=== PATIENT | female | born 1950 | race Caucasian/White ===

== ENCOUNTER → 2020-06-18 | Outpatient (CLI) | payer MEDICARE ==
[~2020-06-18] MED LIST: AMIT10TA PO; CHOL20009 PO; CYAN100072 PO; DICL75TA3 PO; GABA300C PO; MULT-658 PO; VIT1CAPS51 PO; biotin PO
[2020-06-18 10:49] LABS: MICROSCOPIC NOT IND
[2020-06-18 10:56] LABS: BASOPHILS % (AUTO) 1 % (0-1); EOSINOPHILS % (AUTO) 1 % (1-7); LYMPHOCYTES % (AUTO) 27 % (22-44); MEAN CORPUSCULAR HEMOGLOBIN 35.5 pg (27.0-34.8); MEAN PLATELET VOLUME 7.3 fL (7.4-10.4); MONOCYTES % (AUTO) 6 % (2-9); NEUTROPHILS % (AUTO) 65 % (42-75); PLATELET COUNT 322 x10^3/uL (130-400); RED BLOOD COUNT 4.21 x10^6/uL (3.82-5.3); RED CELL DISTRIBUTION WIDTH 13.1 % (9.6-15.2)
[2020-06-18 10:59] LABS: ANION GAP 5 mmol/L (5-15); CALCIUM 8.6 mg/dL (8.5-10.1); CHLORIDE 108 mmol/L (98-107); CREATININE 0.91 mg/dL (0.55-1.02)
[2020-06-18 11:00] LABS: INTERNATIONAL NORMALIZED RATIO 0.92 (0.93-1.1); PROTHROMBIN TIME 9.5 Seconds (9.6-11.5)
[2020-06-18 11:13] LABS: MD NO
== END | disposition home or self-care (01) ==
LOC: STAR 09:31
PROVIDERS: ATTEND Neurological Surgery
DX: Z01.818 Encounter for other preprocedural examination (principal); Z01.812 Encounter for preprocedural laboratory examination; Z01.811 Encounter for preprocedural respiratory examination; Z01.810 Encounter for preprocedural cardiovascular examination; M51.17 Intervertebral disc disorders with radiculopathy, lumbosacral region; R79.1 Abnormal coagulation profile; R82.90 Unspecified abnormal findings in urine; R94.31 Abnormal electrocardiogram [ECG] [EKG]; M48.061 Spinal stenosis, lumbar region without neurogenic claudication; M95.4 Acquired deformity of chest and rib
CPT/HCPCS: 36415; 71046; 72110; 80048; 81003; 85025; 85610; 85730; 93005

== ENCOUNTER → 2020-06-24 | Outpatient (CLI) | payer MEDICARE | END | disposition home or self-care (01) | LOC: STAR 08:58 | PROVIDERS: ATTEND Anesthesiology | DX: Z01.812 Encounter for preprocedural laboratory examination (principal); Z20.828 Contact with and (suspected) exposure to other viral communicable diseases | CPT/HCPCS: 36415; 87635 ==

== ENCOUNTER 2020-06-28 11:07 | Inpatient (IN) | payer MEDICARE ==
[~2020-06-28] VITALS: Ht 162.6 cm; Wt 60.0 kg
[~2020-06-28 11:07] MED LIST changes: +BACITRACIN 50,000 UNIT ONE; +BUPIVACAINE 0.25% ONE; +BUPIVACAINE/PF 0.5% ONE; +EPINEPHRINE 1 MG/ML, 1ML ONE; +VANCOMYCIN 1,000 MG ONE
[2020-06-28] MEDS ORDERED: CHLORHEXIDINE 15 ML UDC MM STA (11:18)
[2020-06-28] MEDS ORDERED: CHLORHEXIDINE 15 ML UDC ONE (11:22)
[2020-06-28] MEDS ORDERED: LACTATED RINGERS 1,000 ML IV SCH (11:30)
[2020-06-28] MEDS ORDERED: FENTANYL PF 250 MCG/5ML ONE (12:45)
[2020-06-28] MEDS ORDERED: MIDAZOLAM 1 MG/ML, 2ML ONE (12:45)
[2020-06-28] MEDS ORDERED: ONDANSETRON 2MG/ML, 2ML ONE (12:50)
[2020-06-28] MEDS ORDERED: CEFAZOLIN 1,000 MG ONE (12:50)
[2020-06-28] MEDS ORDERED: ROCURONIUM 10MG/ML,5ML ONE (12:50)
[2020-06-28] MEDS ORDERED: NEOSTIGMINE 1 MG/ML, 10ML ONE (12:50)
[2020-06-28] MEDS ORDERED: GLYCOPYRROLATE 0.2MG/1ML, 5ML ONE (12:50)
[2020-06-28] MEDS ORDERED: DEXAMETHASONE 4 MG/ML, 1ML ONE (12:50)
[2020-06-28] MEDS ORDERED: PROPOFOL 10 MG/ML, 20ML ONE (12:50)
[2020-06-28] MEDS ORDERED: morphine SULFATE 10 MG/ML, 1ML IVPush PRN (14:30)
[2020-06-28] MEDS ORDERED: HALOPERIDOL 5 MG/ML IV PRN (14:30)
[2020-06-28] MEDS ORDERED: PROMETHAZINE 25 MG/ML, 1ML IVPush PRN (14:30)
[2020-06-28] MEDS ORDERED: hydrALAzine 20 MG/ML, 1ML IV PRN (14:30)
[2020-06-28] MEDS ORDERED: HYDROmorphone 1 MG/ML, 1ML INJ IVPush PRN (14:30)
[2020-06-28] MEDS ORDERED: OXYcodone 5 MG/5 ML ORAL.SOL UDC PO PRN (14:30)
[2020-06-28] MEDS ORDERED: MEPERIDINE/PF 25MG/0.5ML IVPush PRN (14:30)
[2020-06-28] MEDS ORDERED: LABETALOL 5MG/ML, 20ML IV PRN ×2 (14:30→18:00)
[2020-06-28] MEDS ORDERED: ACETAMINOPHEN 325 MG TABLET PO PRN (14:30)
[2020-06-28] MEDS ORDERED: VANCOMYCIN 1,000 MG IM ONE (14:49)
[2020-06-28] MEDS ORDERED: FENTANYL PF 100 MCG/2ML ONE ×2 (14:57→16:27)
[2020-06-28] MEDS: FENTANYL PF 100 MCG/2ML IV PRN ×2 (16:20→16:25)
[2020-06-28] MEDS ORDERED: OXYcodone 5 MG/5 ML ORAL.SOL UDC ONE (16:27)
[2020-06-28] MEDS ORDERED: ACETAMINOPHEN 650 MG/20.3 ML UDC ONE (16:28)
[2020-06-28] MEDS ORDERED: METHOCARBAMOL 1,000 MG in DEXTROSE 5% 100 ML IV ONE (16:30)
[2020-06-28] MEDS ORDERED: BISACODYL 10 MG SUPP PR PRN (18:00)
[2020-06-28] MEDS ORDERED: OXYcodone IR 5MG TABLET PO PRN (18:00)
[2020-06-28] MEDS ORDERED: PROMETHAZINE 25 MG/ML, 1ML IM PRN (18:00)
[2020-06-28] MEDS ORDERED: MAGNESIUM HYDROXIDE 8%, 30ML UDC PO PRN (18:00)
[2020-06-28] MEDS ORDERED: ONDANSETRON 2MG/ML, 2ML IV PRN (18:00)
[2020-06-28] MEDS ORDERED: DIPHENHYDRAMINE 25 MG CAPSULE PO PRN (18:00)
[2020-06-28] MEDS: D5%-0.9% NACL+KCL 20MEQ 1,000 ML IV SCH (18:40)
[2020-06-28] MEDS: GABAPENTIN 300 MG CAPSULE PO SCH (19:56)
[2020-06-28] MEDS: HYDROcodone/APAP 5/325 TABLET PO PRN (20:01)
[2020-06-28 20:23] VITALS: BP 115/55
[2020-06-28] MEDS ORDERED: AMITRIPTYLINE 10 MG TABLET PO SCH (21:00)
[2020-06-28] MEDS ORDERED: ZOLPIDEM 5MG TABLET PO PRN (21:00)
[2020-06-28] MEDS: CEFAZOLIN PMX 1GM/50ML 50 ML IV SCH (22:02)
[2020-06-29] MEDS: METHOCARBAMOL 750 MG in DEXTROSE 5% 100 ML IV SCH ×2 (00:36→09:31)
[2020-06-29 01:38] VITALS: BP 96/43
[2020-06-29 05:33] VITALS: BP 95/45
[2020-06-29] MEDS: CEFAZOLIN PMX 1GM/50ML 50 ML IV SCH (06:04)
[2020-06-29] MEDS: HYDROcodone/APAP 5/325 TABLET PO PRN ×2 (06:05→13:36)
[2020-06-29 06:50] VITALS: BP 90/48
[2020-06-29] MEDS: D5%-0.9% NACL+KCL 20MEQ 1,000 ML IV SCH (08:30)
[2020-06-29] MEDS: GABAPENTIN 300 MG CAPSULE PO SCH (08:42)
[2020-06-29] MEDS ORDERED: SENNA/DOCUSATE TABLET PO SCH (09:00)
[2020-06-29 13:02] VITALS: BP 90/48
[2020-06-29] MEDS ORDERED: HYDR-3246 PO (14:16)
[2020-06-29] MEDS ORDERED: METH750T87 PO (14:17)
[2020-06-29] MEDS ORDERED: CEPH-368 PO (14:17)
[2020-07-01] MEDS ORDERED: METHOCARBAMOL 750 MG TABLET PO SCH (00:30)
== END 2020-06-29 14:58 | disposition home or self-care (01) | DRG 520 ==
LOC: OUT 11:07 → 4NE 17:33 → OUT 19:04 → 4NE 19:05
PROVIDERS: ADMIT Neurological Surgery; ATTEND Neurological Surgery
PROC: 01NB0ZZ Release Lumbar Nerve, Open Approach (ICD-10-PCS; 2020-06-28)
PROC: 0SB20ZZ Excision of Lumbar Vertebral Disc, Open Approach (ICD-10-PCS; 2020-06-28)
PROC: 4A11X4G Monitoring of Peripheral Nervous Electrical Activity, Intraoperative, External Approach (ICD-10-PCS; 2020-06-28)
PROC: 00NY0ZZ Release Lumbar Spinal Cord, Open Approach (ICD-10-PCS; principal; 2020-06-28 14:30)
DX: M51.16 Intervertebral disc disorders with radiculopathy, lumbar region (principal); M48.061 Spinal stenosis, lumbar region without neurogenic claudication
CPT/HCPCS: 72100; 95938; 95941; G0378; J0171; J0690; J1100; J2250; J2405; J2704; J2710; J3010; J3370; J2800; J3480

== ENCOUNTER 2021-05-16 11:23 | Outpatient (CLI) | payer MEDICARE ==
[~2021-05-16 11:23] MED LIST changes: +ACET-1600 PO; +ACET325T14 PO; -BACITRACIN 50,000 UNIT ONE; -BUPIVACAINE 0.25% ONE; -BUPIVACAINE/PF 0.5% ONE; +CEPH-368 PO; -EPINEPHRINE 1 MG/ML, 1ML ONE; +GABA600T7 PO; +HYDR-3248 PO; +METH-640 PO; +METH750T87 PO; -VANCOMYCIN 1,000 MG ONE
[2021-05-16] MEDS ORDERED: GABA600T7 PO (11:53)
[2021-05-16 12:24] LABS: MICROSCOPIC INDICATED
[2021-05-16 12:25] LABS: BASOPHILS % (AUTO) 2 % (0-1); EOSINOPHILS % (AUTO) 3 % (1-7); LYMPHOCYTES % (AUTO) 34 % (22-44); MEAN CORPUSCULAR HEMOGLOBIN 35.8 pg (27.0-34.8); MEAN CORPUSCULAR HGB CONC 34.4 g/dL (32.4-35.8); MEAN PLATELET VOLUME 7.3 fL (7.4-10.4); MONOCYTES % (AUTO) 9 % (2-9); NEUTROPHILS % (AUTO) 53 % (42-75); PLATELET COUNT 316 x10^3/uL (130-400); RED BLOOD COUNT 4.29 x10^6/uL (3.82-5.3); RED CELL DISTRIBUTION WIDTH 12.5 % (9.6-15.2)
[2021-05-16 12:32] LABS: ALANINE AMINOTRANSFERASE 24 U/L (12-78); ALBUMIN 3.4 g/dL (3.4-5.0); ANION GAP 5 mmol/L (5-15); CHLORIDE 106 mmol/L (98-107); CREATININE 0.88 mg/dL (0.55-1.02)
[2021-05-16 12:34] LABS: ALKALINE PHOSPHATASE 91 U/L (45-117); BILIRUBIN,TOTAL 0.3 mg/dL (0.2-1.0); TOTAL PROTEIN 7.1 g/dL (6.4-8.2)
[2021-05-16 12:38] LABS: INTERNATIONAL NORMALIZED RATIO 0.93 (0.93-1.1); PROTHROMBIN TIME 9.8 Seconds (9.6-11.5)
== END 2021-05-16 23:59 | disposition home or self-care (01) ==
LOC: STAR 11:23 → MERGE 11:23 → STAR 23:59
PROVIDERS: ATTEND Neurological Surgery
DX: Z01.810 Encounter for preprocedural cardiovascular examination (principal); Z01.811 Encounter for preprocedural respiratory examination; Z01.812 Encounter for preprocedural laboratory examination; M43.06 Spondylolysis, lumbar region; M48.061 Spinal stenosis, lumbar region without neurogenic claudication; R79.1 Abnormal coagulation profile; R82.90 Unspecified abnormal findings in urine; R94.31 Abnormal electrocardiogram [ECG] [EKG]; J43.9 Emphysema, unspecified; Z20.822 Contact with and (suspected) exposure to COVID-19
CPT/HCPCS: 36415; 71046; 80053; 81001; 85025; 85610; 85730; 87077; 87086; 93005; U0003; U0005; 87186

== ENCOUNTER 2021-05-22 05:26 | Inpatient (IN) | payer MEDICARE ==
[2021-05-21 10:34] LABS: MICROSCOPIC NOT IND
[~2021-05-22] VITALS: Ht 162.6 cm; Wt 57.4 kg
[2021-05-22 06:07] VITALS: BP 125/69
[2021-05-22] MEDS ORDERED: AMIT25TA PO (06:11)
[2021-05-22] MEDS ORDERED: CHLORHEXIDINE 15 ML UDC ONE (06:13)
[2021-05-22] MEDS ORDERED: CEFAZOLIN 1,000 MG ONE (06:18)
[2021-05-22] MEDS ORDERED: HEPARIN 1,000 UNITS/ML, 30ML ONE (06:18)
[2021-05-22] MEDS ORDERED: LACTATED RINGERS 1,000 ML IV SCH (06:30)
[2021-05-22] MEDS ORDERED: CHLORHEXIDINE 15 ML UDC PO ONE (06:30)
[2021-05-22] MEDS ORDERED: MIDAZOLAM 1 MG/ML, 2ML ONE (06:39)
[2021-05-22] MEDS ORDERED: FENTANYL PF 250 MCG/5ML ONE (06:40)
[2021-05-22] MEDS ORDERED: CEFAZOLIN 1,000 MG IM ONE (08:05)
[2021-05-22] MEDS ORDERED: HEPARIN 1,000 UNITS/ML, 30ML IVPB ONE (08:06)
[2021-05-22] MEDS ORDERED: BISACODYL 10 MG SUPP PR PRN (09:00)
[2021-05-22] MEDS ORDERED: PROMETHAZINE 25 MG/ML, 1ML IM PRN (09:00)
[2021-05-22] MEDS ORDERED: PROMETHAZINE 25 MG/ML, 1ML IV PRN (09:00)
[2021-05-22] MEDS ORDERED: LABETALOL 5MG/ML, 20ML IV PRN (09:00)
[2021-05-22] MEDS ORDERED: MEPERIDINE/PF 25MG/0.5ML IVPush PRN (09:00)
[2021-05-22] MEDS ORDERED: KETOROLAC 30 MG/1 ML IV PRN (09:00)
[2021-05-22] MEDS ORDERED: ALBUTEROL SULFATE 2.5 MG/3 ML NPPB PRN (09:00)
[2021-05-22] MEDS ORDERED: METOCLOPRAMIDE 5 MG/ML, 2ML IV PRN (09:00)
[2021-05-22] MEDS ORDERED: OXYcodone/APAP 5/325MG TABLET PO PRN (09:00)
[2021-05-22] MEDS ORDERED: DIAZEPAM 5 MG/ML, 2ML IV PRN ×2 (09:00)
[2021-05-22] MEDS ORDERED: hydrALAzine 20 MG/ML, 1ML IV PRN (09:00)
[2021-05-22] MEDS: SODIUM CHLORIDE FLUSH 10ML SYR IVF SCH ×2 (09:00→20:29)
[2021-05-22] MEDS ORDERED: MAGNESIUM HYDROXIDE 8%, 30ML UDC PO PRN (09:00)
[2021-05-22] MEDS ORDERED: METHOCARBAMOL 1,000 MG in DEXTROSE 5% 100 ML IV ONE (09:00)
[2021-05-22] MEDS ORDERED: LABETALOL 5MG/ML, 20ML IVPush PRN (09:00)
[2021-05-22] MEDS ORDERED: DIPHENHYDRAMINE 50 MG/ML, 1ML IM PRN (09:00)
[2021-05-22] MEDS ORDERED: DIPHENHYDRAMINE 50 MG CAPSULE PO PRN (09:00)
[2021-05-22] MEDS ORDERED: OXYcodone 5 MG/5 ML ORAL.SOL UDC PO PRN (09:00)
[2021-05-22] MEDS ORDERED: ONDANSETRON 2MG/ML, 2ML IVPush PRN ×2 (09:00)
[2021-05-22] MEDS ORDERED: PHARMACY MAY ADJ FOR RENAL FX MC PRN (09:00)
[2021-05-22] MEDS ORDERED: HYDROmorphone 1 MG/ML, 1ML INJ IVPush PRN (09:00)
[2021-05-22] MEDS ORDERED: DIPHENHYDRAMINE 50 MG/ML, 1ML IVPush PRN (09:00)
[2021-05-22] MEDS ORDERED: HYDROmorphone 1 MG/ML, 1ML INJ IV PRN (09:00)
[2021-05-22] MEDS ORDERED: FENTANYL PF 100 MCG/2ML ONE (09:30)
[2021-05-22] MEDS: FENTANYL PF 100 MCG/2ML IV PRN ×3 (09:32→09:56)
[2021-05-22] MEDS: GABAPENTIN 300 MG CAPSULE PO SCH ×2 (11:47→20:29)
[2021-05-22] MEDS: HYDROcodone/APAP 5/325 TABLET PO PRN ×2 (11:48→16:04)
[2021-05-22 14:05] VITALS: BP 129/67
[2021-05-22] MEDS: D5%-0.9% NACL+KCL 20MEQ 1,000 ML IV SCH (16:04)
[2021-05-22] MEDS: CEFAZOLIN PMX 1GM/50ML 50 ML IVPB SCH (16:08)
[2021-05-22] MEDS: AMITRIPTYLINE 25 MG TABLET PO SCH (20:28)
[2021-05-22 20:39] VITALS: BP 111/52
[2021-05-23] MEDS: HYDROcodone/APAP 5/325 TABLET PO PRN ×3 (00:09→20:58)
[2021-05-23] MEDS: CEFAZOLIN PMX 1GM/50ML 50 ML IVPB SCH ×2 (00:09→17:45)
[2021-05-23 00:22] VITALS: BP 99/59
[2021-05-23 04:35] VITALS: BP 99/53
[2021-05-23] MEDS: D5%-0.9% NACL+KCL 20MEQ 1,000 ML IV SCH ×2 (05:24→14:00)
[2021-05-23] MEDS ORDERED: CEFAZOLIN 1,000 MG ONE (06:50)
[2021-05-23] MEDS ORDERED: EPINEPHRINE 1 MG/ML, 1ML ONE (06:50)
[2021-05-23] MEDS ORDERED: BUPIVACAINE/PF 0.5% ONE (06:50)
[2021-05-23 06:52] VITALS: BP 115/72
[2021-05-23] MEDS ORDERED: FENTANYL PF 250 MCG/5ML ONE (07:59)
[2021-05-23] MEDS: SODIUM CHLORIDE FLUSH 10ML SYR IVF SCH ×3 (08:14→20:59)
[2021-05-23] MEDS: GABAPENTIN 300 MG CAPSULE PO SCH ×2 (08:15→20:59)
[2021-05-23] MEDS ORDERED: CHLORHEXIDINE 15 ML UDC ONE ×2 (08:16→08:18)
[2021-05-23] MEDS ORDERED: CHLORHEXIDINE 15 ML UDC PO ONE (08:30)
[2021-05-23] MEDS ORDERED: DIPHENHYDRAMINE 50 MG/ML, 1ML IVPush PRN ×3 (09:00→11:30)
[2021-05-23] MEDS ORDERED: DIPHENHYDRAMINE 50 MG CAPSULE PO PRN (09:00)
[2021-05-23] MEDS ORDERED: PROPOFOL 100 ML ONE (09:05)
[2021-05-23] MEDS ORDERED: CEFAZOLIN 1,000 MG IM ONE (10:19)
[2021-05-23] MEDS ORDERED: BUPIVACAINE/PF-EPI 0.5% 1:200K INFIL ONE (10:19)
[2021-05-23] MEDS ORDERED: HYDROmorphone 1 MG/ML, 1ML INJ IVPush PRN (10:30)
[2021-05-23] MEDS ORDERED: HYDROcodone/APAP 7.5-325MG/15ML UDC PO PRN (10:30)
[2021-05-23] MEDS ORDERED: ONDANSETRON 2MG/ML, 2ML IVPush PRN ×2 (10:30→11:30)
[2021-05-23] MEDS ORDERED: MEPERIDINE/PF 25MG/0.5ML IVPush PRN (10:30)
[2021-05-23] MEDS ORDERED: LORazepam 2 MG/ML, 1ML IVPush PRN (10:30)
[2021-05-23] MEDS ORDERED: PROMETHAZINE 25 MG/ML, 1ML IVPush PRN (10:30)
[2021-05-23] MEDS ORDERED: METHOCARBAMOL 1,000 MG in DEXTROSE 5% 100 ML IV PRN (10:30)
[2021-05-23] MEDS ORDERED: BISACODYL 10 MG SUPP PR PRN (11:30)
[2021-05-23] MEDS ORDERED: SENNA/DOCUSATE TABLET PO PRN (11:30)
[2021-05-23] MEDS ORDERED: PHARMACY MAY ADJ FOR RENAL FX MC PRN (11:30)
[2021-05-23] MEDS ORDERED: HYDROmorphone/PF 4 MG/ML, 1ML IM PRN (11:30)
[2021-05-23] MEDS ORDERED: OXYcodone/APAP 5/325MG TABLET PO PRN (11:30)
[2021-05-23] MEDS ORDERED: HYDROcodone/APAP 10/325 MG TABLET PO PRN (11:30)
[2021-05-23] MEDS ORDERED: MAGNESIUM HYDROXIDE 8%, 30ML UDC PO PRN (11:30)
[2021-05-23] MEDS ORDERED: FENTANYL PF 100 MCG/2ML ONE (11:38)
[2021-05-23] MEDS: FENTANYL PF 100 MCG/2ML IV PRN ×2 (11:39→12:00)
[2021-05-23] MEDS ORDERED: HYDROcodone/APAP 7.5-325MG/15ML UDC ONE (11:55)
[2021-05-23] MEDS ORDERED: METHOCARBAMOL 1,000 MG in DEXTROSE 5% 100 ML IV ONE (12:00)
[2021-05-23] MEDS: NS + 20MEQ KCL 1,000 ML IV SCH (12:53)
[2021-05-23 14:31] VITALS: BP 122/76
[2021-05-23] MEDS ORDERED: HYDROmorphone 2 MG/ML, 1ML ONE (14:40)
[2021-05-23] MEDS: AMITRIPTYLINE 25 MG TABLET PO SCH (20:58)
[2021-05-23 21:00] VITALS: BP 120/72
[2021-05-24 00:15] VITALS: BP 112/65
[2021-05-24] MEDS: CEFAZOLIN PMX 1GM/50ML 50 ML IVPB SCH (01:41)
[2021-05-24] MEDS: HYDROcodone/APAP 5/325 TABLET PO PRN ×5 (01:41→21:40)
[2021-05-24] MEDS: NS + 20MEQ KCL 1,000 ML IV SCH ×2 (02:20→11:51)
[2021-05-24] MEDS: ENOXAPARIN 40 MG/0.4 ML SQ SCH (06:10)
[2021-05-24 06:15] VITALS: BP 120/58
[2021-05-24 06:29] LABS: BASOPHILS % (AUTO) 1 % (0-1); EOSINOPHILS % (AUTO) 1 % (1-7); LYMPHOCYTES % (AUTO) 23 % (22-44); MEAN CORPUSCULAR HEMOGLOBIN 35.7 pg (27.0-34.8); MEAN CORPUSCULAR HGB CONC 34.3 g/dL (32.4-35.8); MEAN PLATELET VOLUME 7.5 fL (7.4-10.4); MONOCYTES % (AUTO) 8 % (2-9); NEUTROPHILS % (AUTO) 68 % (42-75); PLATELET COUNT 205 x10^3/uL (130-400); RED BLOOD COUNT 3.56 x10^6/uL (3.82-5.3); RED CELL DISTRIBUTION WIDTH 12.4 % (9.6-15.2)
[2021-05-24 06:30] LABS: ANION GAP 4 mmol/L (5-15); CALCIUM 8.2 mg/dL (8.5-10.1); CHLORIDE 108 mmol/L (98-107); CREATININE 0.71 mg/dL (0.55-1.02)
[2021-05-24] MEDS: SODIUM CHLORIDE FLUSH 10ML SYR IVF SCH ×3 (07:14→21:42)
[2021-05-24] MEDS: D5%-0.9% NACL+KCL 20MEQ 1,000 ML IV SCH ×2 (07:15)
[2021-05-24] MEDS: POLYETHYLENE GLYCOL 17 GM PACKET PO SCH (08:09)
[2021-05-24] MEDS: GABAPENTIN 300 MG CAPSULE PO SCH ×2 (08:09→21:38)
[2021-05-24 15:00] VITALS: BP 120/58
[2021-05-24] MEDS: SENNA/DOCUSATE TABLET PO PRN (17:06)
[2021-05-24 20:35] VITALS: BP 118/50
[2021-05-24] MEDS: AMITRIPTYLINE 25 MG TABLET PO SCH (21:38)
[2021-05-25] MEDS: NS + 20MEQ KCL 1,000 ML IV SCH ×3 (01:20→23:26)
[2021-05-25 02:59] VITALS: BP 143/70
[2021-05-25] MEDS: METHOCARBAMOL 750 MG TABLET PO PRN ×3 (03:09→20:51)
[2021-05-25] MEDS: ENOXAPARIN 40 MG/0.4 ML SQ SCH (05:46)
[2021-05-25 05:47] LABS: BASOPHILS % (AUTO) 1 % (0-1); EOSINOPHILS % (AUTO) 2 % (1-7); LYMPHOCYTES % (AUTO) 15 % (22-44); MEAN CORPUSCULAR HEMOGLOBIN 36.3 pg (27.0-34.8); MEAN CORPUSCULAR HGB CONC 35.2 g/dL (32.4-35.8); MEAN PLATELET VOLUME 7.5 fL (7.4-10.4); MONOCYTES % (AUTO) 8 % (2-9); NEUTROPHILS % (AUTO) 75 % (42-75); PLATELET COUNT 200 x10^3/uL (130-400); RED BLOOD COUNT 3.72 x10^6/uL (3.82-5.3); RED CELL DISTRIBUTION WIDTH 11.9 % (9.6-15.2)
[2021-05-25 05:56] LABS: ANION GAP 4 mmol/L (5-15); CALCIUM 8.5 mg/dL (8.5-10.1); CHLORIDE 102 mmol/L (98-107)
[2021-05-25 05:59] LABS: CREATININE 0.65 mg/dL (0.55-1.02)
[2021-05-25 08:48] VITALS: BP 129/68
[2021-05-25] MEDS: SODIUM CHLORIDE FLUSH 10ML SYR IVF SCH ×2 (09:00→20:51)
[2021-05-25] MEDS: POLYETHYLENE GLYCOL 17 GM PACKET PO SCH (10:21)
[2021-05-25] MEDS: GABAPENTIN 300 MG CAPSULE PO SCH ×2 (10:29→20:51)
[2021-05-25] MEDS ORDERED: MAGNESIUM CITRATE 300ML ORAL SOL PO PRN (12:00)
[2021-05-25 14:00] VITALS: BP 133/65
[2021-05-25] MEDS: SENNA/DOCUSATE TABLET PO PRN (16:51)
[2021-05-25 20:38] VITALS: BP 129/62
[2021-05-25] MEDS: AMITRIPTYLINE 25 MG TABLET PO SCH (20:51)
[2021-05-26 01:15] VITALS: BP 123/62
[2021-05-26 06:32] LABS: BASOPHILS % (AUTO) 1 % (0-1); EOSINOPHILS % (AUTO) 2 % (1-7); LYMPHOCYTES % (AUTO) 17 % (22-44); MEAN CORPUSCULAR HEMOGLOBIN 36.3 pg (27.0-34.8); MEAN CORPUSCULAR HGB CONC 35.5 g/dL (32.4-35.8); MEAN PLATELET VOLUME 7.5 fL (7.4-10.4); MONOCYTES % (AUTO) 9 % (2-9); NEUTROPHILS % (AUTO) 71 % (42-75); PLATELET COUNT 210 x10^3/uL (130-400); RED BLOOD COUNT 3.77 x10^6/uL (3.82-5.3); RED CELL DISTRIBUTION WIDTH 11.8 % (9.6-15.2)
[2021-05-26] MEDS ORDERED: VANCOMYCIN 1,000 MG ONE (06:37)
[2021-05-26] MEDS ORDERED: CEFAZOLIN 1,000 MG ONE ×2 (06:37→07:58)
[2021-05-26] MEDS ORDERED: BUPIVACAINE/PF 0.5% ONE (06:37)
[2021-05-26 06:44] LABS: ANION GAP 6 mmol/L (5-15); CALCIUM 8.7 mg/dL (8.5-10.1); CHLORIDE 100 mmol/L (98-107)
[2021-05-26 06:46] LABS: CREATININE 0.58 mg/dL (0.55-1.02)
[2021-05-26 07:12] VITALS: BP 129/65
[2021-05-26] MEDS ORDERED: FENTANYL PF 250 MCG/5ML ONE (07:57)
[2021-05-26] MEDS ORDERED: DEXAMETHASONE 4 MG/ML, 1ML ONE (07:58)
[2021-05-26] MEDS ORDERED: GLYCOPYRROLATE 0.2MG/1ML, 5ML ONE (07:58)
[2021-05-26] MEDS ORDERED: ONDANSETRON 2MG/ML, 2ML ONE (07:58)
[2021-05-26] MEDS ORDERED: ROCURONIUM 10MG/ML,5ML ONE (07:58)
[2021-05-26] MEDS ORDERED: PROPOFOL 100 ML ONE (07:58)
[2021-05-26] MEDS ORDERED: PROPOFOL 10 MG/ML, 20ML ONE (07:58)
[2021-05-26] MEDS ORDERED: NEOSTIGMINE 1 MG/ML, 10ML ONE (07:58)
[2021-05-26] MEDS ORDERED: CHLORHEXIDINE 15 ML UDC PO ONE (08:30)
[2021-05-26] MEDS ORDERED: CHLORHEXIDINE 15 ML UDC ONE (08:32)
[2021-05-26] MEDS ORDERED: hydrALAzine 20 MG/ML, 1ML IV PRN (09:00)
[2021-05-26] MEDS ORDERED: LABETALOL 5MG/ML, 20ML IV PRN (09:00)
[2021-05-26] MEDS: SODIUM CHLORIDE FLUSH 10ML SYR IVF SCH ×3 (09:00→20:26)
[2021-05-26] MEDS ORDERED: HALOPERIDOL 5 MG/ML IV PRN (09:00)
[2021-05-26] MEDS ORDERED: HYDROmorphone 1 MG/ML, 1ML INJ IVPush PRN (09:00)
[2021-05-26] MEDS: GABAPENTIN 300 MG CAPSULE PO SCH ×2 (09:00→20:26)
[2021-05-26] MEDS ORDERED: MEPERIDINE/PF 25MG/0.5ML IVPush PRN (09:00)
[2021-05-26] MEDS ORDERED: morphine SULFATE 10 MG/ML, 1ML IVPush PRN (09:00)
[2021-05-26] MEDS ORDERED: OXYcodone 5 MG/5 ML ORAL.SOL UDC PO PRN (09:00)
[2021-05-26] MEDS ORDERED: PROMETHAZINE 25 MG/ML, 1ML IVPush PRN (09:00)
[2021-05-26] MEDS ORDERED: FENTANYL PF 100 MCG/2ML ONE ×2 (10:04→11:13)
[2021-05-26] MEDS ORDERED: FENTANYL PF 100 MCG/2ML IV PRN (10:30)
[2021-05-26] MEDS ORDERED: ACETAMINOPHEN 325 MG TABLET PO PRN (10:30)
[2021-05-26] MEDS ORDERED: ONDANSETRON 2MG/ML, 2ML IVPush PRN (11:00)
[2021-05-26] MEDS ORDERED: BISACODYL 10 MG SUPP PR PRN (11:00)
[2021-05-26] MEDS ORDERED: SENNA/DOCUSATE TABLET PO PRN (11:00)
[2021-05-26] MEDS ORDERED: PHARMACY MAY ADJ FOR RENAL FX MC PRN (11:00)
[2021-05-26] MEDS ORDERED: OXYcodone/APAP 5/325MG TABLET PO PRN (11:00)
[2021-05-26] MEDS ORDERED: HYDROmorphone/PF 4 MG/ML, 1ML IM PRN (11:00)
[2021-05-26] MEDS ORDERED: METHOCARBAMOL 750 MG TABLET PO PRN (11:00)
[2021-05-26] MEDS ORDERED: DIPHENHYDRAMINE 50 MG CAPSULE PO PRN (11:00)
[2021-05-26] MEDS ORDERED: MAGNESIUM HYDROXIDE 8%, 30ML UDC PO PRN (11:00)
[2021-05-26] MEDS ORDERED: METHOCARBAMOL 1,000 MG in DEXTROSE 5% 100 ML IV ONE (11:00)
[2021-05-26] MEDS ORDERED: HYDROcodone/APAP 7.5-325MG/15ML UDC ONE (11:48)
[2021-05-26] MEDS ORDERED: ACETAMINOPHEN 325 MG TABLET ONE (11:48)
[2021-05-26] MEDS ORDERED: OXYcodone 5 MG/5 ML ORAL.SOL UDC ONE (11:59)
[2021-05-26] MEDS ORDERED: ACETAMINOPHEN 650 MG/20.3 ML UDC ONE (12:00)
[2021-05-26 14:14] VITALS: BP 147/69
[2021-05-26] MEDS: POLYETHYLENE GLYCOL 17 GM PACKET PO SCH (15:15)
[2021-05-26] MEDS: CEFAZOLIN PMX 1GM/50ML 50 ML IVPB SCH (17:29)
[2021-05-26 20:15] VITALS: BP 121/59
[2021-05-26] MEDS: AMITRIPTYLINE 25 MG TABLET PO SCH (20:26)
[2021-05-26] MEDS: METHOCARBAMOL 750 MG TABLET PO PRN (20:35)
[2021-05-26] MEDS: NS + 20MEQ KCL 1,000 ML IV SCH (22:00)
[2021-05-26 23:46] VITALS: BP 140/64
[2021-05-27] MEDS: CEFAZOLIN PMX 1GM/50ML 50 ML IVPB SCH (01:48)
[2021-05-27 04:22] VITALS: BP 128/64
[2021-05-27 05:55] LABS: BASOPHILS % (AUTO) 0 % (0-1); EOSINOPHILS % (AUTO) 1 % (1-7); LYMPHOCYTES % (AUTO) 21 % (22-44); MEAN CORPUSCULAR HEMOGLOBIN 36.4 pg (27.0-34.8); MEAN CORPUSCULAR HGB CONC 35.8 g/dL (32.4-35.8); MEAN PLATELET VOLUME 7.4 fL (7.4-10.4); MONOCYTES % (AUTO) 12 % (2-9); NEUTROPHILS % (AUTO) 66 % (42-75); PLATELET COUNT 220 x10^3/uL (130-400); RED BLOOD COUNT 3.57 x10^6/uL (3.82-5.3); RED CELL DISTRIBUTION WIDTH 11.9 % (9.6-15.2)
[2021-05-27 05:59] LABS: CALCIUM 8.1 mg/dL (8.5-10.1); CHLORIDE 100 mmol/L (98-107); CREATININE 0.63 mg/dL (0.55-1.02)
[2021-05-27 06:05] LABS: ANION GAP 4 mmol/L (5-15)
[2021-05-27] MEDS: ENOXAPARIN 40 MG/0.4 ML SQ SCH (06:22)
[2021-05-27] MEDS: METHOCARBAMOL 750 MG TABLET PO PRN ×2 (06:22→21:07)
[2021-05-27] MEDS: GABAPENTIN 300 MG CAPSULE PO SCH ×2 (08:29→21:07)
[2021-05-27] MEDS: SODIUM CHLORIDE FLUSH 10ML SYR IVF SCH ×4 (08:31→21:00)
[2021-05-27] MEDS: POLYETHYLENE GLYCOL 17 GM PACKET PO SCH (08:41)
[2021-05-27 08:48] VITALS: BP 118/55
[2021-05-27] MEDS ORDERED: METOCLOPRAMIDE 5 MG/ML, 2ML IVPush PRN (10:00)
[2021-05-27 13:26] VITALS: BP 115/55
[2021-05-27] MEDS: NS + 20MEQ KCL 1,000 ML IV SCH (17:49)
[2021-05-27 18:29] VITALS: BP 129/55
[2021-05-27] MEDS: AMITRIPTYLINE 25 MG TABLET PO SCH (21:08)
[2021-05-27] MEDS: HYDROcodone/APAP 5/325 TABLET PO PRN (23:42)
[2021-05-28 02:18] VITALS: BP 117/66
[2021-05-28] MEDS: ENOXAPARIN 40 MG/0.4 ML SQ SCH (05:34)
[2021-05-28] MEDS: METHOCARBAMOL 750 MG TABLET PO PRN (05:38)
[2021-05-28 05:48] LABS: BASOPHILS % (AUTO) 1 % (0-1); EOSINOPHILS % (AUTO) 2 % (1-7); LYMPHOCYTES % (AUTO) 30 % (22-44); MEAN CORPUSCULAR HEMOGLOBIN 35.5 pg (27.0-34.8); MEAN CORPUSCULAR HGB CONC 34.7 g/dL (32.4-35.8); MEAN PLATELET VOLUME 7.4 fL (7.4-10.4); MONOCYTES % (AUTO) 13 % (2-9); NEUTROPHILS % (AUTO) 54 % (42-75); PLATELET COUNT 229 x10^3/uL (130-400); RED BLOOD COUNT 3.65 x10^6/uL (3.82-5.3); RED CELL DISTRIBUTION WIDTH 11.9 % (9.6-15.2)
[2021-05-28 08:40] VITALS: BP 97/61
[2021-05-28] MEDS ORDERED: HYDR-3248 PO (08:53)
[2021-05-28] MEDS ORDERED: METH-640 PO (08:53)
[2021-05-28] MEDS ORDERED: CEPH500T PO (08:53)
[2021-05-28] MEDS: SODIUM CHLORIDE FLUSH 10ML SYR IVF SCH ×2 (09:00)
[2021-05-28] MEDS: GABAPENTIN 300 MG CAPSULE PO SCH (09:53)
[2021-05-28] MEDS: HYDROcodone/APAP 5/325 TABLET PO PRN (09:53)
[2021-05-28] MEDS: POLYETHYLENE GLYCOL 17 GM PACKET PO SCH (09:53)
[2021-05-28 11:29] VITALS: BP 120/66
== END 2021-05-28 12:35 | disposition home health service (06) | DRG 455 ==
LOC: MERGE 05:26 → ORIP 05:26 → 4NE 10:21
PROVIDERS: ADMIT Neurological Surgery; ATTEND Neurological Surgery
PROC: 01NB0ZZ Release Lumbar Nerve, Open Approach (ICD-10-PCS; 2021-05-22)
PROC: 01NR0ZZ Release Sacral Nerve, Open Approach (ICD-10-PCS; 2021-05-22)
PROC: 0SG10A0 Fusion of 2 or more Lumbar Vertebral Joints with Interbody Fusion Device, Anterior Approach, Anterior Column, Open Approach (ICD-10-PCS; 2021-05-22)
PROC: 4A11X4G Monitoring of Peripheral Nervous Electrical Activity, Intraoperative, External Approach (ICD-10-PCS; 2021-05-22)
PROC: 0SG30A0 Fusion of Lumbosacral Joint with Interbody Fusion Device, Anterior Approach, Anterior Column, Open Approach (ICD-10-PCS; principal; 2021-05-22 07:00)
PROC: 0ST20ZZ Resection of Lumbar Vertebral Disc, Open Approach (ICD-10-PCS; 2021-05-23)
PROC: 4A11X4G Monitoring of Peripheral Nervous Electrical Activity, Intraoperative, External Approach (ICD-10-PCS; 2021-05-23)
PROC: 0SG Lower Joints, Fusion (ICD-10-PCS; 2021-05-26)
PROC: 4A11X4G Monitoring of Peripheral Nervous Electrical Activity, Intraoperative, External Approach (ICD-10-PCS; 2021-05-26)
PROC: 8E0W3CZ Robotic Assisted Procedure of Trunk Region, Percutaneous Approach (ICD-10-PCS; 2021-05-26)
PROC: 0SG33J1 Fusion of Lumbosacral Joint with Synthetic Substitute, Posterior Approach, Posterior Column, Percutaneous Approach (ICD-10-PCS; 2021-05-26)
DX: M48.062 Spinal stenosis, lumbar region with neurogenic claudication (principal); F17.200 Nicotine dependence, unspecified, uncomplicated; G89.4 Chronic pain syndrome; J44.9 Chronic obstructive pulmonary disease, unspecified; M47.897 Other spondylosis, lumbosacral region; M21.371 Foot drop, right foot; M48.07 Spinal stenosis, lumbosacral region; M51.16 Intervertebral disc disorders with radiculopathy, lumbar region; M51.17 Intervertebral disc disorders with radiculopathy, lumbosacral region; Z90.49 Acquired absence of other specified parts of digestive tract; Z82.49 Family history of ischemic heart disease and other diseases of the circulatory system
CPT/HCPCS: 36415; 72100; 72131; 74018; 74021; 80048; 81003; 85025; 86850; 86900; 95938; 95941; C1713; C1776; G0378; J0171; J0690; J1100; J1170; J1644; J1650; J2250; J2405; J2704; J2710; J3010; J3370; J3480; C1760; C1762; C1769; J2800; J7120